=== PATIENT | male | born 1990 | race Caucasian/White ===

== ENCOUNTER 2017-04-16 22:10 | Emergency (ER) | payer OTHER ==
[~2017-04-16] VITALS: Ht 167.6 cm; Wt 65.8 kg
[2017-04-16] MEDS ORDERED: AUGMENTIN 875-1 EACH PO (22:44)
[2017-04-16] MEDS ORDERED: IBUPROFEN 800800 M1 PO (22:45)
[2017-04-16 23:00] VITALS: BP 136/77
== END 2017-04-16 23:01 | disposition home or self-care (01) ==
LOC: M.ERS 22:10
DX: L03.012 Cellulitis of left finger (principal)